=== PATIENT | female | born 1950 | race African-American/Black ===

== ENCOUNTER 2018-06-28 12:44 | Emergency (ER) | payer MEDICARE ==
[2018-06-28] MEDS: IBUPROFEN 600 MG TAB PO (14:07)
[2018-06-28] MEDS: ACETAMINOPHEN 500 MG TAB PO (14:07)
== END 2018-06-28 16:06 | disposition left against medical advice (07) ==
LOC: FTE 16:06
DX: M25.551 Pain in right hip (principal); F17.210 Nicotine dependence, cigarettes, uncomplicated; I10 Essential (primary) hypertension
CPT/HCPCS: 73502; 73510; 99283-25